=== PATIENT | female | born 1995 | race Caucasian/White ===

== ENCOUNTER 2019-01-24 11:16 | Day surgery (SDC) | payer OTHER ==
[2019-01-24] MEDS: SOD CHLORIDE 0.9% 1,000 ML IV (06:00)
[2019-01-24] MEDS: CEFAZOLIN 2 GM/50 ML (PMX) 50 ML IVPB (06:00)
[2019-01-24] MEDS ORDERED: ALBUTEROL 0.083% (NEB) 2.5 MG/3 ML AMP HHN (15:00)
[2019-01-24] MEDS ORDERED: FENTAnyl 50 MCG/ML VIAL IV ×2 (15:00)
[2019-01-24] MEDS ORDERED: DIPHENHYDRAMINE 50 MG INJ IV (15:00)
[2019-01-24] MEDS ORDERED: HYDROmorphONE 1 MG/5 ML IV SYRINGE IV ×2 (15:00)
[2019-01-24] MEDS ORDERED: METOCLOPRAMIDE 10 MG INJ IV (15:00)
[2019-01-24] MEDS ORDERED: DESFLURANE 15 MIN (15:11)
[2019-01-24] MEDS ORDERED: FENTAnyl 50 MCG/ML VIAL (15:11)
[2019-01-24] MEDS ORDERED: SUCCINYLCHOLINE CHLORIDE 100 MG/5 ML SYG IV (15:11)
[2019-01-24] MEDS ORDERED: LIDOCAINE 1% (MDV) 20 ML INJ (15:18)
[2019-01-24] MEDS ORDERED: CEFAZOLIN 1 GM INJ (15:53)
[2019-01-24] MEDS ORDERED: PROPOFOL 20 ML (15:53)
[2019-01-24] MEDS ORDERED: SUGAMMADEX SODIUM 200 MG/2 ML VIAL IV (15:53)
[2019-01-24] MEDS ORDERED: ROCURONIUM 50 MG INJ (15:53)
[2019-01-24] MEDS: HYDROmorphONE 1 MG/5 ML IV SYRINGE IV (16:26)
[2019-01-24] MEDS: ONDANSETRON 4 MG INJ IV (16:26)
[2019-01-24] MEDS: MEPERIDINE 25 MG INJ IV (16:26)
[2019-01-24] MEDS: HYDROCODONE/APAP (5/325) TAB PO (17:33)
== END 2019-01-24 18:39 | disposition home or self-care (01) ==
LOC: SDS 11:16
DX: K80.10 Calculus of gallbladder with chronic cholecystitis without obstruction (principal)
CPT/HCPCS: 47562; 84703; 88304